=== PATIENT | male | born 1945 | race Caucasian/White ===

== ENCOUNTER 2020-09-09 10:54 | Emergency (ER) | payer MEDICARE, SELFPAY ==
[2020-09-09 11:17] VITALS: BP 116/55; PULSE 86; RESP 20; TEMP 37.1; O2SAT 97
[2020-09-09 11:42] VITALS: BP 116/55; PULSE 86; RESP 20; TEMP 37.1; O2SAT 97
--- NOTE | 2020-09-09 11:52 | ED.GENADULT ---
HPI - General Adult General Chief complaint: Extremity Injury, Lower Stated complaint: Pain/Swelling in R Foot Time Seen by Provider: 09/09/20 11:26 Source: patient and RN notes reviewed Mode of arrival: wheelchair Limitations: no limitations History of Present Illness HPI narrative: Patient presents today complaining of some severe chills last night that he experienced at home with a temperature of 100.1 this morning. He is also complaining of some instability with standing that started 4 days ago and has worsened since then. States it is more severe in the low body, but does affect the upper body as well. Denies nausea, vomiting, diarrhea, chest pain, shortness of breath, cough, congestion, rhinorrhea, sore throat, loss of taste or smell. Denies any known sick contacts. He took some Tylenol 830 this morning along with a pain pill for his chronic back pain. Patient had right foot surgery on 06/16/2020 and has been wheelchair-bound for the past 8 weeks. 5 days ago he was told he could put a shoe on and could weight-bear with his walker at home and has been doing well. MD complaint: Weakness Related Data Home Medications Medication Instructions Recorded Confirmed levetiracetam 500 mg PO BID 06/08/19 09/09/20 pramipexole 1 mg PO HS 06/08/19 09/09/20 hydrocodone-acetaminophen 5 - 325 tablet PO Q6-8H PRN 09/09/20 09/09/20 tizanidine 8 mg PO DAILY 09/09/20 09/09/20 Allergies Allergy/AdvReac Type Severity Reaction Status Date / Time No Known Allergies Allergy Verified 09/09/20 11:23 Review of Systems Review of Systems: Narrative: CONSTITUTIONAL: Denies body aches, fever, chills, or sweats. EYES: Denies visual changes, redness, or discharge. ENT: Denies rhinorrhea, congestion, sore throat, or otalgia. CARDIOVASCULAR: Denies chest pain, palpitations, or edema. RESPIRATORY: Denies cough or dyspnea. GASTROINTESTINAL: Denies abdominal pain, nausea, vomiting, or diarrhea. GENITOURINARY: Denies dysuria or hematuria. SKIN: Denies rash, itching, or wounds. MUSCULOSKELETAL: Denies back pain, joint pain, or myalgia. NEUROLOGIC: Denies headache, numbness, tingling.+ Weakness, instability PSYCH: Denies depression or anxiety. [facility] Past Medical History Medical History (Updated 09/09/20 @ 12:37 by Leann Plaza, [facility], ) Chronic low back pain Restless leg syndrome Sleep apnea Comments At time of signature, I have reviewed and agree with nursing past medical, surgical, social and family history unless otherwise noted. Please see nursing chart for further information. There is no relevant family history pertinent to the presenting complaint Exam Narrative: Exam Narrative: GENERAL: Well-appearing, well-nourished, and in no acute distress. HEAD: Normocephalic, atraumatic. EYES: EOMI. No redness or drainage. Conjunctivae normal. ENT: Mucous membranes pink and moist. Nares clear. No rhinorrhea. TMs normal bilaterally. Throat normal. Uvula midline. NECK: Normal AROM. Supple. No lymphadenopathy. CHEST: No respiratory distress. Clear to auscultation. HEART: Regular rate and rhythm. No murmur appreciated. Normal peripheral pulses. EXTREMITIES: Normal range of motion. Edema to the right foot with a few surgical incisions that seem to be healing well. Distal sensation intact. Capillary refill normal. Pedal pulse noted. SKIN: Warm, dry, no rash. Capillary refill normal. Normal skin turgor. NEURO: No focal deficits. Alert and oriented x3. PSYCH: Normal affect. No signs of depression or anxiety. Course Course Emergency Course: Patient's rapid COVID-19 test is negative. I am unsure of the etiology of his described weakness and instability , but with his chills and increased body temperature, I feel it indicated to transfer him to a higher level of care for further evaluation. He agrees with this plan and will go to [facility] in [place]. Vital Signs Vital signs: Vital Signs Temperature 98.7 F 09/09/20 11
== END 2020-09-09 12:45 | disposition short-term general hospital (02) ==
PROVIDERS: Emergency Provider Nurse Practitioner; PCP Internal Medicine
DX: R53.1 Weakness (principal); Z20.822 Contact with and (suspected) exposure to COVID-19; G25.81 Restless legs syndrome; G47.33 Obstructive sleep apnea (adult) (pediatric)
CPT/HCPCS: 87426; 99213; C9803; G0463